=== PATIENT | female | born 1975 | race Caucasian/White ===

== ENCOUNTER 2018-12-23 20:46 | Emergency (ER) | payer OTHER ==
[~2018-12-23] VITALS: Ht 162.6 cm; Wt 71.8 kg
[2018-12-23 20:56] VITALS: Ht 162.6 cm; Wt 71.8 kg
[2018-12-23] MEDS ORDERED: KETOROLAC 60 MG INJ IM STA (23:56)
[2018-12-24] MEDS ORDERED: DEXAMETHASONE 10 MG/ML 1 ML INJ IM ONE
[2018-12-24] MEDS ORDERED: KETOROLAC 30 MG INJ IV STA (00:27)
[2018-12-24] MEDS ORDERED: DIAZ5TAB PO (01:54)
[2018-12-24] MEDS ORDERED: IBUP800T48 PO (01:54)
[2018-12-24] MEDS ORDERED: DIAZEPAM 5 MG TAB PO ONE (02:00)
[2018-12-24 02:16] VITALS: BP 110/66; PULSE 60; RESP 16
--- NOTE | 2018-12-24 02:25 | ERD ---
ER Documentation Chief Complaint Chief Complaint numbness left shoulder/left arm x 3 months, no neuro deficit HPI History of Present Illness: 43-year-old female who denies a past medical history coming in today with complaints of left shoulder numbness that radiates to left forearm medicine present intermittently for 3 months. Patient reports that 5 days ago she experienced left-sided facial numbness to her cheek only that has b een persistent. Patient denies shortness of breath, palpitations, diaphoresis. Patient reports left-sided chest pain. At home pharmacological/nonpharmacological treatment for symptoms: Denies Denies social concerns; Denies recent foreign travel ROS All systems reviewed and are negative except as per history of present illness. Medications Home Meds Active Scripts Ibuprofen* (Motrin*) 800 Mg Tab, 800 MG PO Q6H PRN for PAIN AND OR ELEVATED TEMP, #30 TAB Prov:PRASANNA ONEILL V [employer] 12/24/18 Diazepam* (Valium*) 5 Mg Tablet, 5 MG PO Q8 PRN for ANXIETY OR MUSCLE PAIN, #10 TAB Prov:PRASANNA ONEILL NP 12/24/18 Allergies Allergies: Coded Allergies: No Known Drug Allergies (Verified Allergy, Unknown, 12/23/18) PMhx/Soc Medical and Surgical Hx: pt denies Medical Hx, pt denies Surgical Hx Hx Alcohol Use: No Hx Substance Use: No Hx Tobacco Use: No Smoking Status: Never smoker FmHx Family History: No diabetes, No coronary disease Physical Exam Vitals Vital Signs Date Temp Pulse Resp B/P (MAP) Pulse Ox O2 O2 Flow FiO2 Time Delivery Rate 12/24/18 98.0 60 16 110/66 99 Room Air 02:16 (81) 12/23/18 99.4 77 18 107/72 99 20:56 (84) Physical Exam Const: No acute distress, afebrile Head: Atraumatic Eyes: Normal Conjunctiva ENT: Normal External Ears, Nose and Mouth. Neck: Full range of motion. No meningismus. No tenderness to palpation to trapezius. Resp: Clear to auscultation bilaterally Cardio: Regular rate and rhythm, no murmurs. Chest wall tenderness. Abd: Soft, non tender, non distended. No guarding, no masses, no rigidity Skin: No petechiae or rashes Back: No midline or flank tenderness Ext: No cyanosis, or edema. No tenderness to palpation to left arm, NVI distally. Neur: Awake and alert x3, speaking in clear sentences, no focal deficits or facial asymmetry Psych: Normal Mood and Affect Result Diagram: 12/24/18 0014 12/24/18 0014 Results 24 hrs Laboratory Tests Test 12/24/18 00:13 12/24/18 00:14 POC Beta HCG, Qualitative NEGATIVE White Blood Count 6.3 10^3/ul Red Blood Count 3.81 10^6/ul Hemoglobin 11.6 g/dl Hematocrit 35.2 % Mean Corpuscular Volume 92.4 fl Mean Corpuscular Hemoglobin 30.4 pg Mean Corpuscular Hemoglobin Concent 33.0 g/dl Red Cell Distribution Width 11.9 % Platelet Count 279 10^3/UL Mean Platelet Volume 9.0 fl Immature Granulocytes % 0.200 % Neutrophils % 48.7 % Lymphocytes % 39.6 % Monocytes % 8.5 % Eosinophils % 2.5 % Basophils % 0.5 % Nucleated Red Blood Cells % 0.0 /100WBC Immature Granulocytes # 0.010 10^3/ul Neutrophils # 3.1 10^3/ul Lymphocytes # 2.5 10^3/ul Monocytes # 0.5 10^3/ul Eosinophils # 0.2 10^3/ul Basophils # 0.0 10^3/ul Nucleated Red Blood Cells # 0.0 10^3/ul Erythrocyte Sedimentation Rate 20 mm/Hr Sodium Level 138 mmol/L Potassium Level 4.1 mmol/L Chloride Level 105 mmol/L Carbon Dioxide Level 27 mmol/L Anion Gap 6 Blood Urea Nitrogen 16 mg/dl Creatinine 0.71 mg/dl Est Glomerular Filtrat Rate mL/min > 60 mL/min Glucose Level 95 mg/dl Calcium Level 9.4 mg/dl Total Bilirubin 0.3 mg/dl Direct Bilirubin 0.00 mg/dl Indirect Bilirubin 0.3 mg/dl Aspartate Amino Transf (AST/SGOT) 24 IU/L Alanine Aminotransferase (ALT/SGPT) 27 IU/L Alkaline Phosphatase 44 IU/L Troponin I 0.017 ng/ml C-Reactive Protein 0.7 mg/dl Total Protein 7.4 g/dl Albumin 4.1 g/dl Globulin 3.30 g/dl Albumin/Globulin Ratio 1.24 Current Medications Medications Dose Sig/Adonay Start Time Status Last (Trade) Ordered Route PRN Stop Time Admin Dose Reason Admin 10 mg ONCE ONCE 12/24/18 DC 12/24/18 Dexamethasone IM 00:00 00:29 (Decadron) 12/24/18 00:01 Ketorolac 60 mg ONCE STAT 12/23/18 DC Tromethamine IM 23:56 (Toradol) 12/23/18 23:59 Ketorolac 30 mg ONCE STAT 12/24/18 DC 12/24/18 Tromethamine IV 00:27 00:33 (Toradol) 12/24/18 02:25 Diazepam 5 mg ONCE ONCE 12/24/18 DC (Valium) PO 02:00 12/24/18 02:01 Procedures/MDM ED course includes a thorough examination and history. Medications: Ketorolac, dexamethasone Imaging: EKG Labs: CBC, CMP, ESR, CRP, urine , troponin Low suspicion for life-threatening medical emergency. Low suspicion for cardiopulmonary emergency requires hospitalization or immediate intervention; low suspicion for NSTEMI, STEMI. Low suspicion for neurological emergency including Intracranial hemorrhage, subarachnoid hemorrhage. Otherwise healthy patient presenting with constellation of symptoms likely representing anxiety, left facial numbness, left arm pain, muscle spasm, left- sided chest pain as characterized by history, physical exam findings, lab findings, imaging findings. CBC: no e/o of systemic infection or severe anemia CMP: no e/o severe acidosis, alkalosis, renal failure, diabetic ketoacidosis, liver disease. Troponin negative. CRP negative. ESR negative. EKG at 0034. Reviewed by Dr. Black.: Rate/Rhythm: Incomplete right bundle branch block, ventricular rate 55 QRS, ST, T-waves: No changes consistent w/ acute ischemia Impression: No evidence of ischemia or arrhythmia Patient reassessment 0154: Decrease in pain with medication administration. Orders placed for Valium before discharge. Patient hemodynamically stable. No respiratory distress, otherwise relatively well appearing and nontoxic. Disposition given. Patient educated on diagnoses, prescriptions, follow-up care, return precautions. Strict return precautions given for worsening condition; questions answered discharge. Patient verbalizes understanding of discharge instructions as well as plan of care. Patient verbalizes understanding of follow-up care for EKG findings. Disposition for discharge with followup in 2 days with PCP/clinic. Departure Diagnosis: Primary Impression: Right bundle branch block (RBBB) on electrocardiogram (ECG) Additional Impressions: Anxiety about health Left arm pain Left facial numbness Condition: Stable Patient Instructions: Muscle Spasm, Your Body's Response to Anxiety, Numbness Referrals: [facility] YOU HAVE RECEIVED A MEDICAL SCREENING EXAM AND THE RESULTS INDICATE THAT YOU DO NOT HAVE A CONDITION THAT REQUIRES URGENT TREATMENT IN THE EMERGENCY DEPARTMENT. FURTHER EVALUATION AND TREATMENT OF YOUR CONDITION CAN WAIT UNTIL YOU ARE SEEN IN YOUR DOCTORS OFFICE WITHIN THE NEXT 1-2 DAYS. IT IS YOUR RESPONSIBILITY TO MAKE AN APPOINTMENT FOR FOLOW-UP CARE. IF YOU HAVE A PRIMARY DOCTOR --you should call your primary doctor and schedule an appointment IF YOU DO NOT HAVE A PRIMARY DOCTOR YOU CAN CALL OUR PHYSICIAN REFERRAL HOTLINE AT IF YOU CAN NOT AFFORD TO SEE A PHYSICIAN YOU CAN CHOSE FROM THE FOLLOWING [facility] [address]. [facility] [address] [facility]. [facility] [address] [facility] [address] [facility]. [facility] [address] [facility]. [facility] [address] [facility]. [facility] YOU HAVE RECEIVED A MEDICAL SCREENING EXAM AND THE RESULTS INDICATE THAT YOU DO NOT HAVE A CONDITION THAT REQUIRES URGENT TREATMENT IN THE EMERGENCY DEPARTMENT. FURTHER EVALUATION AND TREATMENT OF YOUR CONDITION CAN WAIT UNTIL YOU ARE SEEN IN YOUR DOCTORS OFFICE WITHIN THE NEXT 1-2 DAYS. IT IS YOUR RESPONSIBILITY TO MAKE AN APPOINTMENT FOR FOLOW-UP CARE. IF YOU HAVE A PRIMARY DOCTOR --you should call your primary doctor and schedule and appointment IF YOU DO NOT HAVE A PRIMARY DOCTOR YOU CAN CALL OUR PHYSICIAN REFERRAL HOTLINE AT . IF YOU CAN NOT AFFORD TO SEE A PHYSICIAN YOU CAN CHOSE FROM THE FOLLOWING [facility]: [facility] [address] [place] [address] [facility] [address] [place] [address] [facility] + [facility] [address] [place] [address] Additional Instructions: Thank you very much for allowing us to participate in your care. Your health and safety is our top priority at [facility]. It is important to read all discharge instructions and education provided in your discharge packet. Call your primary care doctor TOMORROW for an appointment during the next 2-4 days and bring all the information and medications prescribed. Have prescriptions filled and follow precisely the directions on the label. --Ibuprofen is a medication that will help with pain/inflammation. At the dos age of 600 to 800 mg, this will help with inflammation/swelling. Take this medication as prescribed. -Valium IS a muscle relaxer that will also help with anxiety; take this medication daily as prescribed for the next week to help with your muscle spasm. Do not operate heavy machinery while taking this medication; It may make you drowsy. If the symptoms get worse and your provider is unavailable, return to the Emergency Department immediately. PRASANNA ONEILL NP Dec 24, 2018 02:25
== END 2018-12-24 02:16 | disposition home or self-care (01) ==
LOC: FTE 20:46
DX: I45.10 Unspecified right bundle-branch block (principal); F41.9 Anxiety disorder, unspecified; M79.602 Pain in left arm
CPT/HCPCS: 36415; 80053; 81025; 84484; 85025; 85651; 86140; 93005; 96372; 96374; J1100; Z7502; J1885

== ENCOUNTER 2018-12-26 11:15 | Emergency (ER) | payer OTHER ==
[~2018-12-26] VITALS: Ht 165.1 cm; Wt 74.2 kg
[~2018-12-26 11:15] MED LIST: DIAZ5TAB PO; IBUP800T48 PO
[2018-12-26 11:37] VITALS: BP 117/60; PULSE 68; RESP 18; Ht 165.1 cm; Wt 74.2 kg
--- NOTE | 2018-12-26 11:58 | ERD ---
ER Documentation Chief Complaint Chief Complaint same chest pain as wednesday, rx given: valium never filled HPI 43-year-old patient presents ED complaining of chest pain and tightness. She w as seen last Wednesday in this ED for the same symptoms. She was diagnosed with an anxiety attack and discharged with Valium prescription. She reports that she never filled her Valium this prescription and is feeling the same today as she did on Wednesday. She reports chest tightness on her left anterior chest. Reports that she has had extreme stress and anxiety from work in the past month. She has not had any time to relax. She reports that she has a appointment with the primary care provider tomorrow that she will be going to. ROS All systems reviewed and are negative except as per history of present illness. Medications Home Meds Active Scripts Ibuprofen* (Motrin*) 800 Mg Tab, 800 MG PO Q6H PRN for PAIN AND OR ELEVATED TEMP, #30 TAB Prov:PRASANNA ONEILL V [employer] 12/24/18 Diazepam* (Valium*) 5 Mg Tablet, 5 MG PO Q8 PRN for ANXIETY OR MUSCLE PAIN, #10 TAB Prov:PRASANNA ONEILL V [employer] 12/24/18 Allergies Allergies: Coded Allergies: No Known Drug Allergies (Verified Allergy, Unknown, 12/26/18) PMhx/Soc Medical and Surgical Hx: pt denies Medical Hx Hx Alcohol Use: No Hx Substance Use: No Hx Tobacco Use: No FmHx Family History: No diabetes Physical Exam Vitals Vital Signs Date Temp Pulse Resp B/P (MAP) Pulse Ox O2 O2 Flow FiO2 Time Delivery Rate 12/26/18 98.4 68 18 117/60 98 11:37 (79) Physical Exam Const: No acute distress Head: Atraumatic Eyes: Normal Conjunctiva ENT: Normal External Ears, Nose and Mouth. Neck: Full range of motion. Resp: Clear to auscultation bilaterally Cardio: Regular rate and rhythm, Abd: Soft, non tender, non distended. Skin: No petechiae or rashes Back: No midline tenderness Ext: No cyanosis, or edema Neur: Awake and alert Psych: Normal Mood and Affect Procedures/MDM ED COURSE: The patient was stable throughout ED course. I kept the patient informed of laboratory and diagnostic imaging results throughout the ED course. EKG: Read by Dr. Mcdonald, attending physician. EKG shows normal sinus rhythm at a rate of 66 bpm. No arrhythmias, acute ST elevations or T wave changes were noted. MEDICATIONS GIVEN: [None.] MEDICAL DECISION MAKING: Patient is a 43-year-old female presenting with anxiety attack. She had a previous episode on Wednesday when she was seen in this ED and diagnosed with anxiety attack and discharged with Valium prescription that she has not filled. She reports that she is feeling the same and has taken the day off to take time for herself and go right a bike and exercise to help her relax. She understands that this is affecting her life and is now trying to get rid of some major stressors. She has a appointment with the primary care provider tomorrow which she will be attending. I recommended her to ask for therapy with a counselor in addition to possibly getting started on SSRI such as Lexapro or Prozac for long-term management of her anxiety symptoms. She understands that she cannot take the Valium for a long time and understands the risks and side effects of the medication. Since the Valium is very addicting. Doubt ACS highly as patient has atypical presentation for ACS and non-ischemic EKG. H&P and other data not otherwise c/w emergent process (eg. Dissection, PNA, PTX, esophageal rupture). Vital signs were reviewed. Patient is afebrile. Patient was not hypoxic. Patient was hemodynamically stable. PRESCRIPTION: none DISCHARGE: At this time, patient is stable for discharge and outpatient management. I have instructed the patient to follow-up with his/her primary care physician in 1-2 days. I have discussed with the patient the possibility of needing to see a specialist for further workup and imaging studies if symptoms persist. I have instructed the patient to promptly return to the ER for any new or worsening symptoms including increased pain, fever, nausea, vomiting, weakness or LOC. The patient and/or family expressed understanding of and agreement with this plan. All questions were answered. Home care instructions were provided. Disclaimer: Inadvertent spelling and grammatical errors are likely due to EHR/dictation software use and do not reflect on the overall quality of patient care. Also, please note that the electronic time recorded on this note does not necessarily reflect the actual time of the patient encounter. Departure Diagnosis: Primary Impression: Anxiety attack Condition: Fair Patient Instructions: Understanding Generalized Anxiety Disorder (IRENE) Referrals: [facility] YOU HAVE RECEIVED A MEDICAL SCREENING EXAM AND THE RESULTS INDICATE THAT YOU DO NOT HAVE A CONDITION THAT REQUIRES URGENT TREATMENT IN THE EMERGENCY DEPARTMENT. FURTHER EVALUATION AND TREATMENT OF YOUR CONDITION CAN WAIT UNTIL YOU ARE SEEN IN YOUR DOCTORS OFFICE WITHIN THE NEXT 1-2 DAYS. IT IS YOUR RESPONSIBILITY TO MAKE AN APPOINTMENT FOR FOLOW-UP CARE. IF YOU HAVE A PRIMARY DOCTOR --you should call your primary doctor and schedule an appointment IF YOU DO NOT HAVE A PRIMARY DOCTOR YOU CAN CALL OUR PHYSICIAN REFERRAL HOTLINE AT IF YOU CAN NOT AFFORD TO SEE A PHYSICIAN YOU CAN CHOSE FROM THE FOLLOWING [facility] [address] [facility] [address] [facility]. [facility] [address] [facility] [address] [facility]. [facility] [address] [facility]. [facility] [address] [facility]. [facility] YOU HAVE RECEIVED A MEDICAL SCREENING EXAM AND THE RESULTS INDICATE THAT YOU DO NOT HAVE A CONDITION THAT REQUIRES URGENT TREATMENT IN THE EMERGENCY DEPARTMENT. FURTHER EVALUATION AND TREATMENT OF YOUR CONDITION CAN WAIT UNTIL YOU ARE SEEN IN YOUR DOCTORS OFFICE WITHIN THE NEXT 1-2 DAYS. IT IS YOUR RESPONSIBILITY TO MAKE AN APPOINTMENT FOR FOLOW-UP CARE. IF YOU HAVE A PRIMARY DOCTOR --you should call your primary doctor and schedule and appointment IF YOU DO NOT HAVE A PRIMARY DOCTOR YOU CAN CALL OUR PHYSICIAN REFERRAL HOTLINE AT . IF YOU CAN NOT AFFORD TO SEE A PHYSICIAN YOU CAN CHOSE FROM THE FOLLOWING [facility]: [facility] [address] [place] [address] [facility] [address] [place] [address] [facility] + [facility] [address] [place] [address] Additional Instructions: Go to your primary care provider appointment tomorrow and fill the medications that were given to you last ER visit. Try to go on walks and relax. Call your primary care doctor TOMORROW for an appointment during the next 1-2 days.See the doctor sooner or return here if your condition worsens before your appointment time. ALVARO WHITNEY PA-C Dec 26, 2018 11:58
== END 2018-12-26 12:13 | disposition home or self-care (01) ==
LOC: FTE 11:15
DX: F41.9 Anxiety disorder, unspecified (principal)
CPT/HCPCS: 93005; Z7502